=== PATIENT | female | born 1995 | race Hispanic/Latino ===

== ENCOUNTER 2017-10-15 10:26 | Outpatient (CLI) | payer BC ==
--- NOTE | 2017-10-15 12:21 | RAD ---
RIGHT ANKLE THREE VIEWS: HISTORY: A 22-year-old female with a history of right ankle pain after playing sports several years ago. FINDINGS/IMPRESSION: No fracture, dislocation, or other significant acute osseous abnormality. POS: [facility]
--- NOTE | 2017-10-15 12:21 | RAD ---
RIGHT KNEE 3 VIEWS: Date: 10/15/17 HISTORY: 22-year-old female with history of right knee pain. FINDINGS/IMPRESSION: No fracture, dislocation, or other significant acute osseous abnormality. POS: [facility]
== END 2017-10-15 10:27 | disposition home or self-care (01) ==
LOC: SCSRAD 10:26
PROVIDERS: ATTEND Family Medicine
DX: M25.561 Pain in right knee (principal); M25.571 Pain in right ankle and joints of right foot